=== PATIENT | male | born 1960 | race Caucasian/White ===

== ENCOUNTER 2016-10-18 12:14 | Inpatient (IN) | payer MEDICARE ==
--- NOTE | ~2016-10-18 | CO ---
Unit #: [id number] #: [id number] Patient: JAY JAY RASHEED [id number] [facility] [address] [facility]. [place], [place] [address] [id number] I MR#: [id number] NAME: JAY JAY RASHEED. ROOM: 479 Age: 55 Sex: M Admission Date: 10/18/2016 : 1960 Attending Physician: Doreen Palomino M.D. Primary Care Physician: Primary Care Physician No Consultation Date: 10/20/2016 CONSULTATION REPORT REASON FOR CONSULTATION Followup. DISCUSSION Mr. Jay Jay Rasheed is a 55-year-old white male, seen in room CCU-2, bed 7 on 10/20/2016 at [facility]. The patient was admitted with syncopal episode, cocaine abuse, history of depression, bipolar mood disorder, history of alcohol abuse disorder. The patient was transferred from the [facility] to 2-CCU due to decrease in pulse. 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 The patient's vital signs; temperature 98.4, pulse 76, respiratory rate 18, blood pressure 112/80, oxygen saturation 96%. The patient was pleasant and cooperative during interview. Denied any thoughts of harming self or others or any psychotic symptom, but mood sad, dysphoric, flat affect. REVIEW OF SYSTEMS Complete review of systems unremarkable. MENTAL STATUS EXAMINATION General appearance, the patient dressed casually in hospital attire, seemed somewhat lethargic, withdrawn, flat, sad, dysphoric mood. Attention span and concentration, fair. Speech, regular rate. Oriented in time, place, and person. Mood and affect, sad and dysphoric. Thought process, coherent. Thought content, the patient denied any thoughts of harming self or others. Denied any psychotic symptom. Recent and remote memory, fair. Language, intact. Fund of knowledge, fair. Insight and judgment, fair to slightly impaired. DIAGNOSES Psychiatric: Bipolar mood disorder, not otherwise specified, F31.89; cocaine use disorder, moderate, F14.20. ASSESSMENT/PLAN 1. Supportive psychotherapy and psychoeducation provided to the patient. 2. Educated about benefits and side effects of medication and course and prognosis of illness. 3. We will closely monitor. If needed, we will consider medication for mood symptom. Please feel free to call if any questions, telephone #[phone]. Dictated by... Jimmie Gimenez M.D. Unit #: [id number] #: [id number] Patient: JAY JAY RASHEED PEDRO/arabellal TD: 10/21/2016 00:07 JOB #: [id number] CONSULTATION REPORT Page 1 of 1 X Jimmie Gimenez MD X CONSULTATION REPORT
--- NOTE | ~2016-10-18 | HP ---
Unit #: [id number] #: [id number] Patient: RYAN RASHEED [id number] [address] [address] [id number] E MR#: [id number] NAME: RYAN RASHEED ROOM: Age: 55 Sex: M Admission Date: 10/18/2016 : 1960 Attending Physician: Oumou Owen M.D. Primary Care Physician: Primary Care Physician No HISTORY AND PHYSICAL CHIEF COMPLAINT Syncopal episode. HISTORY OF PRESENT ILLNESS The patient is 55-year-old male with history of a mood disorder, cocaine use disorder, alcohol use disorder, and diabetes, who was brought to the emergency room with a syncopal episode. The patient was found down at a store. The patient has been bingeing on the cocaine for the last five days. Does not know if he has been eating or drinking. The patient is on metformin and the last metformin the patient took was on Monday. The patient was found to be hypertensive in the emergency room with the blood pressure of and is being admitted for the above reasons. The patient is lethargic and able to provide on a limited basis and then he goes back to sleep. Denies any trauma. Denies any fever or chills, nausea or vomiting. PAST MEDICAL HISTORY 1. History of a mood disorder. 2. Diabetes. PAST SURGICAL HISTORY 1. History of a spinal cord surgery. 2. Appendectomy. HOME MEDICATIONS Metformin. ALLERGIES Penicillin. SOCIAL HISTORY He smokes cigarettes, abuses cocaine and alcohol of unknown amount. He is homeless. FAMILY HISTORY Patient reports the family history positive for mood disorder. REVIEW OF SYSTEMS A 14-point review of systems was performed and only pertinent positive findings as described above, remaining are negative. PHYSICAL EXAMINATION VITAL SIGNS: Temperature 98, pulse 109, respiratory rate 20, blood pressure , saturating 100% at 3 liters. Unit #: [id number] #: [id number] Patient: RYAN RASHEED GENERAL: Patient is lying on the bed not in acute distress. HEENT: Atraumatic, normocephalic. Pupils equal, round, and reactive to light and accommodation. Extraocular movements are intact. NECK: Supple. LUNGS: Decreased air entry at the bases. HEART: Regular rate and rhythm. ABDOMEN: Soft, positive bowel sounds. EXTREMITIES: No cyanosis, no clubbing. NEUROLOGIC: Alert, awake, oriented x1. DIAGNOSTIC STUDIES LABORATORY: Glucose 212, BUN 33, creatinine 1, sodium 135, potassium 4.1, chloride 99, bicarb 24, calcium 9.2, magnesium 2, total protein 7.6, AST 70, ALT 67, alkaline phosphatase 103. CK is 810 and lactic acid is 1.8. Beta hydroxybutyrate is 0.8. Alcohol less than 5. Troponin less than 0.05. WBC 13.2, hemoglobin 15.1, hematocrit 45.8, platelets 198. Urine toxicology screen positive for cocaine. UA shows more than 1000 glucose and 10-25 urine rbc's. IMAGING: Chest x-ray shows low lung volumes film with interstitial prominence at the lung base likely representing vascular crowding related to the low lung volumes. No definite edema, effusion or pneumothorax seen. CT of the abdomen and pelvis shows no definite acute intraabdominal or intrapelvic pathology. Several areas of increased attenuation are seen within the kidneys, probably representing excretion of the contrast. No definite stones or obstructive lesions. CARDIOVASCULAR: EKG shows sinus tachycardia at a rate of 105 beats per minute, no acute ST-T changes. ASSESSMENT AND PLAN 1. Syncopal episode. 2. Cocaine abuse. 3. Hypotension. 4. Uncontrolled diabetes. PLAN 1. Admit patient to inpatient with telemetry. 2. IV fluids normal saline 125 mL per hour. 3. Continue sliding scale and Accu-Cheks a.c. and h.s. 4. Psychiatric evaluation for the cocaine abuse. 5. Repeat labs again in the morning. 6. Further recommendations will follow as more lab results become available. Dictated by Rebecca Leon TD: 10/18/2016 16:42 Unit #: [id number] #: [id number] Patient: RYAN RASHEED JOB #: [id number] HISTORY AND PHYSICAL Page 1 of 1 X X HISTORY AND PHYSICAL
--- NOTE | ~2016-10-18 | EKG ---
PATIENT: RYAN RASHEED UNIT #: [id number] Ventricular Rate: 105 BPM Atrial Rate: 105 BPM P-R Interval: 168 ms QRS Duration: 88 ms Q-T Interval: 348 ms QTC Calculation(Bezet): 459 ms P Leola: 54 degrees Calculated R Leola: 23 degrees Calculated T Leola: 47 degrees Diagnosis Line: Suspect unspecified pacemaker failure Diagnosis Line: Sinus tachycardia Diagnosis Line: Otherwise normal ECG Diagnosis Line: When compared with ECG of 29-NOV-2015 10:53, Diagnosis Line: No significant change was found Diagnosis Line: Confirmed by MICHELE SAN MD ([id number]) on Diagnosis Line: 10/18/2016 4:40:12 PM INTERPRETING MD: MENA PASTOR
--- NOTE | ~2016-10-18 | TOC ---
Unit #: [id number] #: [id number] Patient: RYAN RASHEED [id number] [address] [place], [place] [address] [id number] I MR#: [id number] NAME: RYAN RASHEED ROOM: [facility] Age: 55 Sex: M Admission Date: 10/18/2016 : 1960 Attending Physician: Doreen Palomino M.D. Referring Physician: Brenton Walker M.D. Primary Care Physician: No Primary Care Physician TRANSFER OF CARE SUMMARY PRINCIPAL DIAGNOSES 1. Shock, likely cardiogenic. 2. Cocaine abuse with recent binge. 3. Transaminitis. 4. Nausea/vomiting. CONSULTANTS Dr. Ravindra Torrez. PROCEDURES Two-dimensional echocardiogram which is currently pending. CLINICAL HISTORY AND HOSPITAL COURSE The patient is 55-year-old male brought into the emergency department after being found down either with syncope and/or fall. The patient was found to be hypotensive in the emergency department and was bolused with IV fluids. Patient was subsequently admitted secondary to his hypotension. Patient was initially admitted to telemetry but the following morning remained hypotensive. A fluid bolus was ordered as were multiple laboratory studies. After a total of 4 L of fluid since presentation, patient remains hypotensive and had subsequently been transferred to the ICU and started on pressor therapy. There has been no significant evidence of sepsis and he has been started on empiric antibiotics and two-dimensional echocardiogram is currently pending. Further hospital course to be dictated as an addendum. Total critical care time spent today 93 minutes. This was from 12:45 p.m. to 2:18 p.m. Dictated by... Doreen Palomino M.D. LANCE/any TD: 10/19/2016 21:02 JOB #: [id number] Unit #: [id number] #: [id number] Patient: RYAN RASHEED TRANSFER OF CARE SUMMARY Page 1 of 1 X Doreen Palomino MD TRANSFER OF CARE SUMMARY
--- NOTE | ~2016-10-18 | CT2 ---
[facility] A Service [facility] RADIOLOGY TEXT RESULTS PATIENT: RYAN RASHEED LOCATION: [facility] 579-01 : 56 UNIT #: [id number] AGE: [address]: Doreen Palomino MD SEX: M ORDER DR: [id number] [facility] [address] [facility]. [place], [place] [address] [id number] E MR#: [id number] Acc #: [id number] NAME: RYAN RASHEED. : 1960 SEX: M STUDY DATE/TIME: 10/18/2016 14:39 UNIT: [facility] ROOM: STUDY DESCRIPTION: CT Abd and Pelv W Cont Attending Physician: Oumou Owen M.D. Ordering Physician: Oumou Owen M.D. Primary Care Physician: No Primary Care Physician MEDICAL IMAGING REPORT This report is preliminary unless electronic signature is present EXAM CT abdomen and pelvis with contrast. HISTORY 55-year-old male, syncopal episode, has used crack cocaine for the last 5 days, confusion, lethargy, abdominal pain onset today. TECHNIQUE Axial images performed through the abdomen and pelvis following IV contrast. Multiplanar reconstructed images reviewed at a workstation. This CT exam was performed with one or more of the following radiation dose reduction techniques: automatic exposure control, adjustment of mA and/or kV according to patient size, and iterative reconstruction. FINDINGS ABDOMEN: Lung bases unremarkable. Liver and spleen appear normal. The gallbladder is unremarkable. Pancreas and adrenal glands are unremarkable. Questionable left renal calcifications suggests a possible stone but no obstruction. This could also just represent early excretion of contrast. Stomach, small bowel, colon unremarkable. Retroperitoneum demonstrates atherosclerotic changes. PELVIS: The bladder is distended. Osseous structures remarkable for L5-S1 degenerative disc changes and multilevel facet arthropathy lower lumbar spine. Extraabdominal soft tissues unremarkable. IMPRESSION 1. No definite acute intraabdominal or intrapelvic pathology. 2. Several areas of increased attenuation are seen within the kidneys, probably represents excretion of contrast, no definitive stone or obstructing lesion. [facility] A Service [facility] RADIOLOGY TEXT RESULTS PATIENT: RYAN RASHEED LOCATION: [facility] 579- : [birth year] UNIT #: [id number] AGE: [address]: Doreen Palomino MD SEX: M ORDER DR: Dictated by... Jordy Gibson M.D. THIS IS AN ELECTRONICALLY VERIFIED REPORT Jordy Gibson M.D. at 10/19/2016 7:33 AM ROSE/tracee TD: 10/18/2016 15:26 JOB #: [id number] MEDICAL IMAGING REPORT Page 1 of 1 COPY
--- NOTE | ~2016-10-18 | CR72 ---
[facility] A Service [facility] RADIOLOGY TEXT RESULTS PATIENT: RYAN RASHEED LOCATION: [place] [address] : [birth year] UNIT #: [id number] AGE: [address]: Doreen Palomino MD SEX: M ORDER DR: [id number] [facility] [address] [facility]. [place], [place] [address] [id number] I MR#: [id number] Acc #: [id number] NAME: RYAN RASHEED. : 1960 SEX: M STUDY DATE/TIME: 10/19/2016 15:49 UNIT: [facility] ROOM: [facility] STUDY DESCRIPTION: CR Chest Single View Portable Attending Physician: Doreen Palomino M.D. Referring Physician: Brenton Walker M.D. Ordering Physician: Doreen Palomino M.D. Primary Care Physician: No Primary Care Physician MEDICAL IMAGING REPORT This report is preliminary unless electronic signature is present EXAM Portable chest x-ray, 10/19/2016. HISTORY Central line placement. TECHNIQUE AP radiograph of chest presented. COMPARISON STUDIES 10/19/2016, 1400 hours. FINDINGS Cervical spine fixation hardware, unchanged. Interval placement of right internal jugular approach central venous catheter terminating in superior vena cava. Heart and mediastinum normal in size and contour. Lungs better inflated than on prior study. There is no clear indication of acute pulmonary disease. No pleural effusion or pneumothorax. No suspicious nodule. Dictated by... Rosalio Jimenez M.D. THIS IS AN ELECTRONICALLY VERIFIED REPORT Rosalio Jimenez M.D. at 10/20/2016 10:54 PM RADHA/tracee TD: 10/19/2016 17:29 JOB #: [id number] [facility] A Service [facility] RADIOLOGY TEXT RESULTS PATIENT: RYAN RASHEED LOCATION: [place] [address] : 56 UNIT #: [id number] AGE: [address]: Doreen Palomino MD SEX: M ORDER DR: MEDICAL IMAGING REPORT Page 1 of 1 COPY
--- NOTE | ~2016-10-18 | CO ---
Unit #: [id number] #: [id number] Patient: JAY JAY RASHEED [id number] [facility] [address] [facility]. [place], [place] [address] [id number] I MR#: [id number] NAME: JAY JAY RASHEED. ROOM: [facility]2 Age: 55 Sex: M Admission Date: 10/18/2016 : 1960 Attending Physician: Doreen Palomino M.D. Primary Care Physician: Primary Care Physician No Consultation Date: 10/19/2016 CONSULTATION REPORT REASON FOR CONSULTATION Cocaine abuse. HISTORY OF PRESENT ILLNESS Jay Jay Rasheed is a 55-year-old male seen on 10/19/2016 in room 579, bed 1 on 5C [address] [facility] on 10/19/2016. The patient dressed in hospital attire, lying comfortably in bed. Withdrawn, isolative, flat affect. Vital Signs: 98.1, 82, 20, 91/58. Oxygen saturation 98%. The patient reported history of previous treatment at [facility], last admission 02/27/2016 with a diagnosis of mood disorder and alcohol use disorder. The patient was treated with Latuda and Neurontin combination in the past. The patient was admitted with syncopal episode. The patient currently denied any suicidal or homicidal ideation. Denied any psychotic symptom, but sad, dysphoric, flat affect, lethargic. PAST PSYCHIATRIC HISTORY Remarkable for history of previous treatment at [facility] as mentioned above with mood disorder, alcohol use disorder. MEDICAL/MEDICATION HISTORY History of diabetes, spinal cord injury. MEDICATIONS Metformin. ALLERGIES To penicillin. FAMILY/SOCIAL HISTORY The patient has a good support system from family. No history of abuse. History of substance abuse, alcohol, cocaine. MENTAL STATUS EXAMINATION Vital Signs: Please see above. General Appearance: The patient dressed casually in hospital attire. Attention span, concentration: Poor. Speech slow. Oriented in place and person. Mood and affect: Labile. Thought process: Circumstantial. Thought content: Guarded, paranoid, but denied any suicidal or homicidal ideation. Recent and remote memory: Fair to poor. Language: Intact. Fund of knowledge: Impaired. Insight and judgment: Fair to slightly impaired. DIAGNOSIS PSYCHIATRIC: Bipolar mood disorder not otherwise specified, F31.89 Unit #: [id number] #: [id number] Patient: JAY JAY RASHEED Cocaine use disorder, moderate, F14.20 Alcohol use disorder, mild, F10.20 Mild to moderate, F10.20 SECONDARY: Deferred. MEDICAL: Please refer to H and P. STRESSORS: Psychosocial stressor. ASSESSMENT/PLAN 1. Supportive psychotherapy, psychoeducation provided to the patient. 2. Educated about benefits and side effects of medication and course and prognosis of illness. Plan to consider medication for mood stabilization if needed. Monitor for any symptoms from cocaine abuse, mainly depression. We will continue to follow. Please feel free to call if any question, telephone #[phone]. Dictated by... Rebecca Quiroz/shawna TD: 10/20/2016 08:06 JOB #: [id number] CONSULTATION REPORT Page 1 of 1 X Jimmie Gimenez MD X CONSULTATION REPORT
--- NOTE | ~2016-10-18 | CT15 ---
[facility] A Service of [facility] RADIOLOGY TEXT RESULTS PATIENT: RYAN RASHEED LOCATION: [facility] 479-01 : 56 UNIT #: [id number] AGE: [address]: Doreen Palomino MD SEX: M ORDER DR: [id number] [facility] [address]. [place], [place] [address] [id number] I MR#: [id number] Acc #: [id number] NAME: RYAN RASHEED. : 1960 SEX: M STUDY DATE/TIME: 10/19/2016 22:14 UNIT: [facility] ROOM: [facility] STUDY DESCRIPTION: CT Angio Chest Attending Physician: Doreen Palomino M.D. Referring Physician: Brenton Walker M.D. Ordering Physician: Doreen Palomino M.D. MEDICAL IMAGING REPORT This report is preliminary unless electronic signature is present REVISED REPORT SEE ADDENDUM EXAM CTA chest with IV contrast. DATE 10/19/2016 HISTORY Syncopal episode 10/18/2016 with hypotension today. Shortness of breath for 2 days. Evaluate for aneurysm or tear in the aorta. History of cocaine and alcohol abuse. Diabetes. COMPARISON AP portable chest 10/19/2016 at 15:49. CTA chest, PE protocol 07/25/2004. PROCEDURE 2 mm axial images were acquired from the thoracic inlet through the upper abdomen after IV contrast administration in the arterial phase. 3-D reformatted images were obtained at a dedicated workstation (3-D images were submitted in a separate file from the original study). Sagittal and coronal 3-D MIP reformatted images were obtained and submitted with the original exam. This CT exam was performed with one or more of the following radiation dose reduction techniques: Automatic exposure control, adjustment of mA and/or kV according to patient size, and iterative reconstruction. FINDINGS There is occlusion of the proximal left subclavian artery within 1.3 cm from its origin, and the left subclavian artery reconstitutes distally, potentially via retrograde flow via the patent left vertebral artery. The [facility] Service of [facility] RADIOLOGY TEXT RESULTS PATIENT: RYAN RASHEED LOCATION: [facility] 479-01 : 56 UNIT #: [id number] AGE: [address]: Doreen Palomino MD SEX: M ORDER DR: brachiocephalic and left common carotid arteries are patent. There is suspected iesetmwj-vx-fmkzpl stenosis of the right subclavian artery near its origin (see series 7, images 25 and 24, denoted by arrows), approximating 69% luminal stenosis based on coronal 3-D images. Continuing right vertebral artery and the subclavian artery appear patent. No thoracic aortic aneurysm or aortic dissection is seen. The included upper abdominal aorta is of normal caliber. The celiac artery and SMA are patent. Incidental note is made of a common origin of the brachiocephalic and left common carotid artery from the aortic arch. Interstitial thickening is present within both lungs, which may represent underlying interstitial pulmonary edema. There is mild bronchiolar wall thickening particularly in the bilateral lower lobes. Posterior bibasilar atelectasis is present, but no dense lung consolidations are seen. Shotty mediastinal lymph nodes are thought to represent benign reactive changes. Nonspecific low-density nodule within the left thyroid lobe measures approximately 1 cm and appears larger than on the 2004 examination, where it measured 7 mm. While this study is not tailored for evaluation of pulmonary embolism, no central embolism is seen. Right IJ central line extends into the lower SVC. No pneumothorax is seen. There is some nonspecific left perinephric stranding, which appears new since the 07/25/2004 examination. Underlying nephritis cannot be completely excluded, but no abnormal renal parenchymal enhancement characteristics are identified. Remainder of the included upper abdominal organs are within normal limits. There are surgical changes within the cervical spine. No acute osseous abnormalities are identified. IMPRESSION 1. Abnormal examination. I have contacted the answering service for the physician basket person (Dr. Kendrick) to discuss the pertinent findings at the time of this dictation, 10/20/2016 at 12:28 a.m. I am currently awaiting a return call. 2. There is occlusion of the proximal left subclavian artery with reconstitution after the takeoff of the left vertebral artery. This raises the possibility of subclavian steal syndrome. 3. There is ebpmcpfj-ms-aodyem stenosis of the right subclavian artery just after the takeoff of the common carotid artery from the brachiocephalic. This resolves just proximal to the right vertebral artery origin, also raising the possibility of potential subclavian STS. [facility] A Service of [facility] RADIOLOGY TEXT RESULTS PATIENT: RYAN RASHEED LOCATION: [facility] 479-01 : 56 UNIT #: [id number] AGE: [address]: Doreen Palomino MD SEX: M ORDER DR: steal syndrome on the right. 4. Mild interstitial thickening in both lungs raising the possibility of interstitial edema. 5. Mild dependent bibasilar atelectasis. 6. Bronchial wall thickening in bilateral lower lobes. Correlate for bronchitis type symptoms. 7. No thoracic aortic aneurysm or aortic dissection. 8. 1 cm left thyroid lobe nodule, increased from 7 mm on the 2004 study. This can be correlated to thyroid function test and/or thyroid ultrasound on a non-emergent basis. 9. There is some mild, nonspecific left perinephric stranding. This can be seen as a normal variant in some patients, but could indicate underlying nephritis in the appropriate clinical context. Dictated by... Kasey Mayen M.D. THIS IS AN ELECTRONICALLY VERIFIED REPORT Kasey Mayen M.D. at 10/20/2016 10:01 PM [facility] TD: 10/20/2016 02:56 JOB #: [id number] ADDENDUM Dr. Kendrick and I have discussed the pertinent findings of bilateral subclavian arteries on 10/20/2016 at 01:11. JOB: [id number] Dictated by... Kasey Mayen M.D. THIS IS AN ELECTRONICALLY VERIFIED REPORT Kasey Mayen M.D. at 10/26/2016 4:13 PM [facility] TD: 10/20/2016 03:18 JOB #: [id number] MEDICAL IMAGING REPORT Page 1 of 1 COPY
--- NOTE | ~2016-10-18 | CR72 ---
[facility] A Service of [facility] RADIOLOGY TEXT RESULTS PATIENT: RYAN RASHEED LOCATION: [address] : [birth year] UNIT #: [id number] AGE: [address]: Doreen Palomino MD SEX: M ORDER DR: [id number] [facility] [address] [facility]. [place], [place] [address] [id number] I MR#: [id number] #: [id number] NAME: RYAN RASHEED. : 1960 SEX: M STUDY DATE/TIME: 10/19/2016 UNIT: [facility] ROOM: [facility] STUDY DESCRIPTION: CR Chest Single View Portable Attending Physician: Doreen Palomino M.D. Referring Physician: Brenton Walker M.D. Ordering Physician: Doreen Palomino M.D. MEDICAL IMAGING REPORT This report is preliminary unless electronic signature is present EXAM Portable chest 10/19/2016 at 1400 hours HISTORY 55-year-old man complaining of 5-day history of cough, shortness of air and hypoxia. History of drug use. COMPARISON 10/18/2016. FINDINGS Portable upright chest demonstrates slightly low lung volumes. Stable cardiac, mediastinal and hilar contours. The lung volumes remain low with mild basilar interstitial prominence unchanged. No effusions seen. IMPRESSION Persistent low lung volumes with mild basilar interstitial prominence similar to yesterday's exam. There is no effusion or pneumothorax. Dictated by... Marisol Vera M.D. THIS IS AN ELECTRONICALLY VERIFIED REPORT Marisol Vera M.D. at 10/20/2016 9:34 AM KYLIE/clari TD: 10/19/2016 15:35 JOB #: [id number] MEDICAL IMAGING REPORT [facility] A Service of [facility] RADIOLOGY TEXT RESULTS PATIENT: RYAN RASHEED LOCATION: [address] : [birth year] UNIT #: [id number] AGE: [address]: Doreen Palomino MD SEX: M ORDER DR: Page 1 of 1 COPY
--- NOTE | ~2016-10-18 | DS ---
Unit #: [id number] #: [id number] Patient: RYAN RASHEED [id number] [address] [address] [id number] I MR#: [id number] NAME: RYAN RASHEED. ROOM: 479 Age: 55 Sex: M Admission Date: 10/18/2016 : 1960 Discharge Date: Attending Physician: Doreen Palomino M.D. Referring Physician: Brenton Walker M.D. Primary Care Physician: Primary Care Physician No DISCHARGE SUMMARY PRINCIPAL DIAGNOSES 1. Syncope, likely drug-induced. 2. Recurrent artificial hypotension, secondary. 3. Bilateral subclavian artery stenosis with subsequent artificially low blood pressure readings of the bilateral upper extremities. 4. Diabetes mellitus type 2, uncontrolled with hemoglobin A1c of 9.6. 5. Cocaine abuse, active. 6. Chronic obstructive pulmonary disease. 7. Tobaccoism. 8. Transaminitis with pending viral hepatitis panel. DUST COLLECTOR(S) 1. Dr. Torrez, pulmonology. 2. Dr. Malik, vascular surgery. PROCEDURE(S) 1. Two-dimensional echocardiogram on October 19, 2016, with ejection fraction of 50 to 55%. No valvular abnormalities noted. 2. Chest x-ray, October 18, 2016, with low lung volumes. No other acute findings. 3. CT scan of abdomen and pelvis with contrast, October 18, 2016, with no acute abnormality. 4. Increased attenuation to both kidneys noted and felt to be contrast-induced. 5. CT of the head without contrast, October 18, 2016, which was normal. 6. CTA of the chest on October 19, 2016, with occlusion of the proximal left subclavian artery, 1.3 cm from origin. This reconstitutes distally by a patent left vertebral artery. Brachiocephalic and left common carotic arteries are patent. There is mild to severe stenosis of right subclavian artery near its origin. Right vertebral artery and subclavian artery are patent. Interstitial thickening of both lungs noted. Left thyroid lobe nodule noted. CLINICAL HISTORY AND HOSPITAL COURSE Mr. Rasheed is a 55-year-old male brought to the emergency department after a syncopal episode as an outpatient. This occurred after a 5-day cocaine binge. The patient was found to be hypotensive in the emergency department with systolic in the 80s, and for this reason was subsequently admitted even though blood work was relatively unremarkable. The patient was admitted and placed on IV fluids. The following morning, the patient's systolic blood pressure still remained in the 70s on both upper extremities. However, I will note the patient clinically did not match and individual with systolic blood pressure in the 70s. However, Unit #: [id number] #: [id number] Patient: RYAN RASHEED given etiology was unclear he was transferred to the ICU and placed on pressure therapy for a short period. Two-dimensional echocardiogram was done to evaluate cardiac function given recent cocaine binge but this was normal. The patient was placed on antibiotics for a short period though clinically he did not appear to have any infection. CT angiogram of the chest was done, revealed bilateral subclavian stenosis. Initially we were unable to get a blood pressure in the leg prior to the CTA, postprocedure, in more diligent testing systolic blood pressure appears to be in the 120s in the legs. He was tapered off pressure therapy and vascular surgery was consulted. At this point, the patient is relatively asymptomatic from his bilateral subclavian stenosis. We are unable to determine whether his syncope was related to this given his cocaine use. At this point, vascular surgery's plan is just to have him follow up as an outpatient if he develops recurrent syncope, dizziness, or other symptoms. He can undergo a left carotic subclavian artery bypass. The patient does have underlying diabetes and sugars remained in the 200s. At this time, the patient is having some difficulty with housing, and I am going to place him on metformin, and he can further try to watch his diet as much as he can. The patient is otherwise clinically stable and will be discharged home today. CONDITION ON DISCHARGE Stable. DISCHARGE STATUS Discharge to intermediate. DISCHARGE MEDICATIONS Metformin 1000 mg p.o. b.i.d. DISCHARGE INSTRUCTIONS The patient was instructed to follow a constant carb diet as much as possible. He can increase activity as tolerated. To refrain from any further cocaine or tobacco use. FOLLOWUP The patient can follow up in the Transition clinic in 3 weeks if he has any difficulty. Dictated by... Doreen Palomino M.D. Carmenza TD: 10/21/2016 09:18 JOB #: [id number] Unit #: [id number] #: [id number] Patient: RASHEEDRYAN Jaylan DISCHARGE SUMMARY Page 1 of 1 X Doreen Palomino MD X DISCHARGE SUMMARY
--- NOTE | ~2016-10-18 | CO ---
Unit #: [id number] #: [id number] Patient: RYAN RASHEED [id number] [facility]. [place], [place] [address] [id number] I MR#: [id number] NAME: RYAN RASHEED. ROOM: 479 Age: 55 Sex: M Admission Date: 10/18/2016 : 1960 Attending Physician: Doreen Palomino M.D. Primary Care Physician: No Primary Care Physician Consultation Date: 10/20/2016 CONSULTATION REPORT CHIEF COMPLAINT Syncope, hypotension. REASON FOR CONSULTATION Evaluation for subclavian steal syndrome. HISTORY OF PRESENT ILLNESS This is a 55-year-old male with a history of mood disorder, cocaine use, alcohol use disorder and diabetes, who was brought to the emergency room for syncope. He was reportedly found down at the store. The patient does not recall any of these episodes. The patient reported has been binging on cocaine for the past five days. He is being treated at [facility] for his syncope as well as for his hypotension. He was transferred to the ICU for further care. The patient reports that he does not have any significant left arm pain or right arm pain. He is right handed by nature. He denies any dizziness or syncope with the use of his left hand or his right hand. He does not have any history of nonhealing wounds of his hands. He does state that he has had cuts on his hands, which have healed without incident. He has not had any upper extremity infections. He does state that his right shoulder can hurt a little bit. PAST MEDICAL HISTORY 1. History of mood disorder. 2. Diabetes. 3. Illicit drug use. PAST SURGICAL HISTORY 1. Spinal cord surgery. 2. Appendectomy. SOCIAL HISTORY Smokes cigarettes 1 pack per day times 40 years. Positive cocaine use and alcohol use. Currently homeless. Currently unemployed. FAMILY HISTORY Denies any known bleeding disorders, clotting disorders or aneurysms. ALLERGIES Reportedly to penicillin. CURRENT MEDICATIONS Metformin. Unit #: [id number] #: [id number] Patient: RYAN RASHEED REVIEW OF SYSTEMS CONSTITUTIONAL: No fevers or chills. ENT: No ear pain, tinnitus or sore throat. RESPIRATIONS: Denies any shortness of breath, cough or paroxysmal nocturnal dyspnea. CARDIOVASCULAR: Denies any chest pain or palpitations. GI: Denies any nausea, vomiting or diarrhea. : Denies any hematuria. HEMATOLOGIC: Denies any easy bruising. ENDOCRINE: Denies any excessive thirst or hunger. MUSCULOSKELETAL: Does have some right shoulder pain. Denies any back pain or neck pain. INTEGUMENTARY: Denies any rash or pruritus. PHYSICAL EXAMINATION GENERAL: Appears tired, but no acute distress. VITALS: Temperature is 98.5, heart rate 70, blood pressure on the leg is 107/70, respiratory rate 14, 96% on room air. HEENT: Eyes, no scleral icterus. NECK: No jugular venous distension. No carotid bruit. LYMPH: No lymphadenopathy in his neck or groins. LUNGS: Respirations unlabored, clear to auscultation. HEART: Regular rate and rhythm. PULSE: Monophasic brachial pulses, radial pulses, palmar R signals, bilaterally. Two plus femoral pulses. Two plus DP pulses, bilaterally. ABDOMEN: Soft, nontender and nondistended. SKIN: No rashes. No ulcerations. PSYCHIATRIC: Normal mood and affect. DIAGNOSTIC STUDIES IMAGING: CT imaging demonstrates a 70% stenosis of the right subclavian artery, and a left subclavian artery occlusion. There is bovine arch anatomy with shared origin of the left common carotid artery and innominate artery Both vertebral arteries are patent. LABORATORY: White blood cell count 15.8, hematocrit 42.1, platelets 203, sodium 140, potassium 3.0, chloride 104, CO2 25, BUN 8, creatinine 0.7, glucose 212. ASSESSMENT/PLAN 1. Left subclavian artery occlusion, right subclavian artery stenosis. The patient does have left subclavian artery occlusion, distal to the origin from the aortic arch, and ends just at the takeoff of the left vertebral artery. There is no significant calcification noted, so it is likely soft thrombus. The patient appears to be asymptomatic from the standpoint that he has not had any syncopal episodes or dizziness or left arm fatigue with its use. Similarly, he denies any dizziness, fatigue or syncope with right arm use. I do not believe his syncope was related to these findings, and is likely more related to his illicit drug use. Should the patient develop syncope with right or left arm use, it is possible to reevaluate the patient for possible carotid subclavian bypass. 2. I agree that the plaque appears soft, with no calcification, but I do not believe it is an acute thrombus which requires a heparin drip. I have asked the nurse to discontinue the heparin drip. Blood pressures in his upper extremities have about a 40-50 mmHg pressure differential from his leg. Obviously going forward in the future, I Unit #: [id number] #: [id number] Patient: RYAN RASHEED instructed the patient to advise medical personnel that his blood pressure should be taken from his legs and not from his arms. 3. I also told the patient to be careful of any potential nonhealing wounds of his hands, which would also require revascularization. 4. No acute vascular surgery issues at this time, unless the patient again as above develops syncopal episodes related to utilization of his upper extremities. 5. He can follow up in our clinic as needed. Dictated by... Rebecca Pardo TD: 10/21/2016 08:32 JOB #: [id number] CONSULTATION REPORT Page 1 of 1 X X CONSULTATION REPORT
--- NOTE | ~2016-10-18 | CR72 ---
[facility] A Service of [facility] RADIOLOGY TEXT RESULTS PATIENT: RYAN RASHEED LOCATION: [facility] : [birth year] UNIT #: [id number] AGE: [address]: Oumou Owen MD SEX: M ORDER DR: [id number] [facility] [address] [place], [place] [address] [id number] MR#: [id number] Acc #: [id number] NAME: RYAN RASHEED : 1960 SEX: M STUDY DATE/TIME: 10/18/2016 12:13 UNIT: [facility] ROOM: STUDY DESCRIPTION: CR Chest Single View Portable Attending Physician: Oumou Owen M.D. Ordering Physician: Oumou Owen M.D. Primary Care Physician: Primary Care Physician No MEDICAL IMAGING REPORT This report is preliminary unless electronic signature is present EXAM Chest portable 10/18/2016 1213 hours HISTORY 55-year-old man with shortness of air for 2 days. COMPARISON 03/09/2009. FINDINGS Portable upright chest demonstrates lower lung volumes. The heart size is stable. The aorta is mildly tortuous. The hilar contours are normal. There is mild basilar interstitial prominence which may simply be due to lower lung volumes. Mild edema is difficult to exclude but is not favored. No effusions. IMPRESSION Lower lung volume film with interstitial prominence at the lung bases felt likely representing vascular crowding related to the low lung volumes. No definite edema, effusion or pneumothorax seen. Dictated by... Marisol Vera M.D. THIS IS AN ELECTRONICALLY VERIFIED REPORT Marisol eVra M.D. at 10/18/2016 2:32 PM KYLIE/floresita TD: 10/18/2016 12:56 JOB #: [id number] MEDICAL IMAGING REPORT [facility] A Service of [facility] RADIOLOGY TEXT RESULTS PATIENT: RYAN RASHEED LOCATION: [facility] : 56 UNIT #: [id number] AGE: [address]: Oumou Owen MD SEX: M ORDER DR: Page 1 of 1 COPY
--- NOTE | ~2016-10-18 | CO ---
Unit #: [id number] #: [id number] Patient: RYAN RASHEED [id number] [address] [place], [place] [address] [id number] I MR#: [id number] NAME: RYAN RASHEED. ROOM: [facility] Age: 55 Sex: M Admission Date: 10/18/2016 : 1960 Attending Physician: Doreen Palomino M.D. Primary Care Physician: No Primary Care Physician CONSULTATION REPORT HISTORY OF PRESENT ILLNESS Mr. Rasheed is a 55-year-old male with a history of mood disorder, cocaine use, alcohol use disorder, diabetes, who was brought into the emergency room and admitted on 10/18/16 after being found down at home. Apparently, he had possibly a syncopal episode. He had been binge using cocaine for the last five days. He had not used cocaine for eight months before that. He was found to be hypotensive in the emergency room with a blood pressure of 85/75, pulse of 109, temperature of 98, O2 sat of 100% on three liters. He was admitted. He was given two liters of normal saline. His core temperature was 96.7. He was given another liter bolus of normal saline and transported to the floor. His blood pressures were in the nineties but, when seen by [facility]patient [facility] physicians, he was noted to be hypotensive again with blood pressure in the 60 to 70 systolic range. He was transported to the ICU and we are asked to see. He denies any chest pain. He has had no fever or chills. He has no known history of heart disease. He does have a history of diabetes and is maintained on Metformin. He says his blood pressures are frequently low and asymmetric in arms. PAST MEDICAL HISTORY Mood disorder and diabetes. PAST SURGICAL HISTORY Spinal cord surgery, appendectomy. SOCIAL HISTORY The patient smokes cigarettes, uses cocaine and alcohol, unknown amount. Homeless. FAMILY HISTORY Positive for mood disorder. HOME MEDICINES Metformin. REVIEW OF SYSTEMS CONSTITUTIONAL: No fevers, chills. HEENT: No rhinorrhea, head congestion. PULMONARY: No shortness of breath, at least at rest now he says. CHEST: No chest pain. GASTROINTESTINAL: No nausea, vomiting. GENITOURINARY: No hematuria, dysuria. ENDOCRINE: No pyuria or polydipsia. He does have a history of diabetes. SKIN: No rash. Unit #: [id number] #: [id number] Patient: RYAN RASHEED NEUROLOGIC: No unilateral weakness or numbness. The patient does have some neuropathy in his legs he says. PHYSICAL EXAMINATION GENERAL APPEARANCE: A white male in no acute distress, laying in bed, able to speak in complete sentences. VITAL SIGNS: Blood pressure 68/? on palpation. Pulse 82. Respiratory rate 28. Afebrile. HEENT: Normocephalic, atraumatic. DIAGNOSTIC STUDIES LABORATORY: WBC count 12,000, hematocrit 42, platelet count normal. HIV nonreactive. Cardiac enzymes currently negative. D-dimer 730. Glucose 190. Creatinine 0.8, 'glucose' [sic] 16. AST, ALT and alkaline phosphatase 70, 67, 103 respectively. CK 810. BNP 134. Hemoglobin A1C 6.9. Beta hydroxybutyrate is 0.8. IMPRESSION Marked hypotension, possibly volume depletion, rule out other causes such as sepsis or LV dysfunction, likely not related to adrenal insufficiency given cortisol level of 18. PLAN Fluid resuscitation, pressors. Broad-spectrum antibiotics. Check echocardiogram. Rule out WI. Further recommendations pending this. Dictated by... Kb Torrez M.D. URBANO/zandra TD: 10/20/2016 07:27 JOB #: [id number] CONSULTATION REPORT Page 1 of 1 X Kb Torrez MD X CONSULTATION REPORT
--- NOTE | ~2016-10-18 | CT71 ---
[facility] A Service [facility] RADIOLOGY TEXT RESULTS PATIENT: RYAN RASHEED LOCATION: [facility] : 56 UNIT #: [id number] AGE: [address]: Doreen Palomino MD SEX: M ORDER DR: [id number] [facility]. [place], [place] [address] [id number] I MR#: [id number] Acc #: [id number] NAME: RYAN RASHEED. : 1960 SEX: M STUDY DATE/TIME: 10/18/2016 16:51 UNIT: [facility] ROOM: [facility] STUDY DESCRIPTION: CT Head Wo Contrast Attending Physician: Doreen Palomino M.D. Referring Physician: Brenton Walker M.D. Ordering Physician: Oumou Owen M.D. Primary Care Physician: Primary Care Physician No MEDICAL IMAGING REPORT This report is preliminary unless electronic signature is present EXAM Noncontrast head CT. HISTORY Syncopal episode, history of crack cocaine use over the last 5 days, confusion, lethargy COMPARISON Head CT 11/29/[address] exam was performed with one or more of the following radiation dose reduction techniques: automatic control, adjustment of mA and/or kV according to patient size, and iterative reconstruction. FINDINGS Axial noncontrast imaging of the brain demonstrates mild atrophy. No mass, mass effect or midline shift. No hemorrhage or abnormal extraaxial fluid collections. Small amount of left maxillary sinus mucosal thickening and right maxillary sinus thickening or polyp. Skull base mastoids unremarkable. IMPRESSION No acute intracranial abnormality identified. Dictated by... Jordy Gibson M.D. THIS IS AN ELECTRONICALLY VERIFIED REPORT Jordy Gibson M.D. at 10/19/2016 5:23 PM ROSE/burtr [facility] A Service [facility] RADIOLOGY TEXT RESULTS PATIENT: RYAN RASHEED LOCATION: [facility] : 56 UNIT #: [id number] AGE: [address]: Doreen Palomino MD SEX: M ORDER DR: TD: 10/18/2016 19:11 JOB #: [id number] MEDICAL IMAGING REPORT Page 1 of 1 COPY
[2016-10-18 12:04] LABS: BASOPHIL% 0.4 % (0-2.5); EOSINOPHIL# 0.1 X10e3 (0-0.7); HEMATOCRIT 45.8 % (38.0-50.0); HEMOGLOBIN 15.1 gm/dL (13.0-16.0); LYMPHOCYTE# 2.5 X10e3 (1.0-3.5); LYMPHOCYTE% 18.8 % (17.0-45.0); MEAN CELL VOLUME 90.2 FL (83-96); MEAN CORPUSCULAR HEMOGLOBIN 29.8 PG (28-34); MEAN PLATELET VOLUME 8.3 FL (6.5-11.5); MONOCYTE# 1.5 X10e3 (0-1.0); MONOCYTE% 11.2 % (3.0-12.0); NEUTROPHIL# 9.1 X10e3 (1.5-7.1); NEUTROPHIL% 68.6 % (40-75); PLATELET COUNT 198 X10e3 (140-420); RED BLOOD COUNT 5.07 X10e (3.90-5.60); RED CELL DISTRIBUTION WIDTH 13.6 % (11.0-15.5); WHITE BLOOD COUNT 13.2 X10e3 (4.0-10.5)
[2016-10-18 12:09] LABS: DIFF IND NO
[2016-10-18 12:40] LABS: POC - CKMB 5.7 ng/mL (0.0-7.9); POC - TROPONIN <0.05 ng/mL (<=0.05)
[2016-10-18 12:50] LABS: ALBUMIN SERUM 4.4 g/dL (3.5-5.0); ALKALINE PHOSPHATASE 103 U/L (32-92); ALT (SGPT) 67 U/L (10-40); AST (SGOT) 70 U/L (10-42); BILIRUBIN, DIRECT 0.3 mg/dL (0.0-0.2); BILIRUBIN,TOTAL 1.3 mg/dL (0.2-2.0); BLOOD UREA NITROGEN 33 mg/dL (9-23); CALCIUM SERUM 9.2 mg/dL (8.4-10.2); CARBON DIOXIDE 24 mmol/L (22-31); CHLORIDE 99 mmol/L (100-111); CPK (CREATINE PHOSPHOKINASE) 810 IU/L (36-174); GLOM FILT RATE Estimated 83.2 mL/min (>60); GLUCOSE FASTING 212 mg/dL (70-110); POTASSIUM 4.1 mmol/L (3.5-5.1); PROTEIN TOTAL SERUM 7.6 g/dL (6.0-8.3); SODIUM 135 mmol/L (135-145)
[2016-10-18 12:52] LABS: ALCOHOL BLOOD <5 mg/dL (0)
[2016-10-18 14:01] LABS: URINE SOURCE CLEAN CATCH
[2016-10-18 14:02] LABS: POC - CKMB 15.3 ng/mL (0.0-7.9); POC - TROPONIN <0.05 ng/mL (<=0.05)
[2016-10-18 14:09] LABS: URINE APPEARANCE CLEAR; URINE BILIRUBIN NEG (NEG); URINE BLOOD 2+ (NEG); URINE COLOR YELLOW; URINE GLUCOSE >1000 MG/DL (NEG); URINE KETONE 2+ (NEG); URINE LEUKOCYTE ESTERASE NEG (NEG); URINE NITRATE NEG (NEG); URINE PROTEIN NEG (NEG); URINE SPECIFIC GRAVITY 1.025 (1.003-1.035)
[2016-10-18 14:11] LABS: URINE BACTERIA AUWI NEG (NEGATIVE); URINE SQUAMOUS EPITHELIAL CELL NONE SEEN /[HPF]
[2016-10-18 14:12] LABS: CULTURE INDICATED? NO
[2016-10-18 14:20] LABS: AMPHETAMINE NEG (NEG); BARBITURATES NEG (NEG); BENZODIAZEPINES NEG (NEG); COCAINE POS (NEG); MARIJUANA NEG (NEG); OPIATES NEG (NEG); TRICYCLIC ANTIDEPRESSANTS NEG (NEG); U METHADONE NEG (NEG)
[2016-10-18] MEDS ORDERED: NO MEDICATIONS (18:33)
[2016-10-19 05:56] LABS: HEMATOCRIT 42.8 % (38.0-50.0); MEAN CELL VOLUME 90.4 FL (83-96); MEAN CORPUSCULAR HEMOGLOBIN 29.7 PG (28-34); MEAN CORPUSCULAR HGB CONC 32.8 g/dL (30-36); MEAN PLATELET VOLUME 8.1 FL (6.5-11.5); RED BLOOD COUNT 4.73 X10e (3.90-5.60); RED CELL DISTRIBUTION WIDTH 13.7 % (11.0-15.5)
[2016-10-19 06:31] LABS: CALCIUM SERUM 8.4 mg/dL (8.4-10.2); CREATININE SERUM 0.8 mg/dL (0.6-1.4); GLOM FILT RATE Estimated 99.2 mL/min (>60); POTASSIUM 3.8 mmol/L (3.5-5.1)
[2016-10-20 01:53] LABS: PARTIAL THROMBOPLASTIN TIME 27.3 SECONDS (23.5-31.3)
[2016-10-20 05:36] LABS: BASOPHIL# 0.1 X10e3 (0-0.3); BASOPHIL% 0.5 % (0-2.5); EOSINOPHIL# 0.1 X10e3 (0-0.7); EOSINOPHIL% 0.6 % (0.0-7.0); HEMATOCRIT 42.4 % (38.0-50.0); HEMOGLOBIN 14.4 gm/dL (13.0-16.0); LYMPHOCYTE% 19.2 % (17.0-45.0); MEAN CELL VOLUME 88.8 FL (83-96); MEAN CORPUSCULAR HEMOGLOBIN 30.1 PG (28-34); MEAN CORPUSCULAR HGB CONC 33.9 g/dL (30-36); MEAN PLATELET VOLUME 8.1 FL (6.5-11.5); MONOCYTE# 1.6 X10e3 (0-1.0); MONOCYTE% 10.3 % (3.0-12.0); NEUTROPHIL% 69.4 % (40-75); PLATELET COUNT 203 X10e3 (140-420); RED BLOOD COUNT 4.77 X10e (3.90-5.60); RED CELL DISTRIBUTION WIDTH 13.5 % (11.0-15.5); WHITE BLOOD COUNT 15.8 X10e3 (4.0-10.5)
[2016-10-20 05:37] LABS: DIFF IND YES
[2016-10-20 06:11] LABS: BUN/CREATININE RATIO 11.42; CALCIUM SERUM 8.2 mg/dL (8.4-10.2); CREATININE SERUM 0.7 mg/dL (0.6-1.4); GLOM FILT RATE Estimated 104.8 mL/min (>60)
[2016-10-20 06:15] LABS: ANISOCYTOSIS SL; PLATELET ESTIMATE NORMAL (NORMAL)
[2016-10-21 00:37] LABS: HEMATOCRIT 38.5 % (38.0-50.0); HEMOGLOBIN 13.1 gm/dL (13.0-16.0); MEAN CORPUSCULAR HEMOGLOBIN 30.3 PG (28-34); MEAN PLATELET VOLUME 7.6 FL (6.5-11.5); RED BLOOD COUNT 4.33 X10e (3.90-5.60); RED CELL DISTRIBUTION WIDTH 13.3 % (11.0-15.5)
[2016-10-21 01:09] LABS: BUN/CREATININE RATIO 21.42; CALCIUM SERUM 8.3 mg/dL (8.4-10.2); CREATININE SERUM 0.7 mg/dL (0.6-1.4); GLOM FILT RATE Estimated 104.8 mL/min (>60); MAGNESIUM 2.2 mg/dL (1.6-3.0); POTASSIUM 3.7 mmol/L (3.5-5.1)
[2016-10-21] MEDS ORDERED: METFORMIN PO (12:19)
[2016-10-25 21:22] LABS: HA AB IGM (HEPPAN) Nonreactive (()); HB CORE AB IGM (HEPPAN) Nonreactive (Nonreactive); HB S AG (HEPPAN) Nonreactive (Nonreactive); HEP C AB (HEPPAN) Reactive (Nonreactive)
== END 2016-10-21 12:45 | disposition home or self-care (01) | DRG 312 ==
LOC: CED 12:14 → CEDOF 15:55 → C5C 18:08 → CICCU2 10-19 13:39 → C3A PCU 10-20 17:09 → C4C 10-20 19:19
PROVIDERS: Emergency Medicine; Internal Medicine
PROC: 05HM33Z Insertion of Infusion Device into Right Internal Jugular Vein, Percutaneous Approach (ICD-10-PCS; principal; 2016-10-19)
PROC: B543ZZA Ultrasonography of Right Jugular Veins, Guidance (ICD-10-PCS; 2016-10-19)
PROC: 03HC33Z Insertion of Infusion Device into Left Radial Artery, Percutaneous Approach (ICD-10-PCS; 2016-10-19)
PROC: B246ZZZ Ultrasonography of Right and Left Heart (ICD-10-PCS; 2016-10-19)
DX: R55 Syncope and collapse (principal); I95.9 Hypotension, unspecified; E11.65 Type 2 diabetes mellitus with hyperglycemia; G45.8 Other transient cerebral ischemic attacks and related syndromes; I70.208 Unspecified atherosclerosis of native arteries of extremities, other extremity; Z79.84 Long term (current) use of oral hypoglycemic drugs; F14.10 Cocaine abuse, uncomplicated; F10.10 Alcohol abuse, uncomplicated; J44.9 Chronic obstructive pulmonary disease, unspecified; F17.210 Nicotine dependence, cigarettes, uncomplicated; R74.0 Nonspecific elevation of levels of transaminase and lactic acid dehydrogenase [LDH]; Z88.0 Allergy status to penicillin; Z59.0 Homelessness; F31.9 Bipolar disorder, unspecified
CPT/HCPCS: 36415; 70450; 71010; 71275; 74177; 80048; 80074; 80076; 80307; 81003; 82010; 82533; 82550; 82553; 82947; 83036; 83605; 83735; 83880; 84132; 84443; 84484; 85025; 85027; 85379; 85610; 85730; 87040; 87522; 87806; 93005; 93306; 94760; 94761; 96360; 96361; 97165; 99285; G0480; G8987-GO; G8988-GO; G8989-GO; J0692; J1265; J1644; J1650; J1815; J2405; J3370; J3475; Q9967